=== PATIENT | male | born 1995 | race Caucasian/White ===

== ENCOUNTER 2016-12-22 19:56 | Emergency (ER) | payer MEDICAID ==
--- NOTE | 2016-12-22 20:18 | ED Physician Chart ---
Chief Complaint/HPI - Patient Information Date Seen:: 12/22/16 Time Seen:: 20:00 Chief Complaint:: foot pain History of Present Illness:: 21-year-old male, brought in by ambulance, complains of acute, constant, moderate, left foot pain that happened about 20 minutes prior to arrival to the airway stepped on a piece of glass. Has associated bleeding from the wound site. Also reports that yesterday he slipped out of his bathtub and hit his head and now has associated head pain and nausea. Historian:: Patient, EMS Review:: Nurse's Note Reviewed, EMS run form Reviewed Review of Systems - Review of Systems Other: Complete system review otherwise unremarkable except as noted in HPI. Past Medical History - Past Medical History Past Medical History: No significant medical hx Family History: None Social History: Smoker, No Alcohol, No Drug Use Surgical History: None Psychiatricy History: None Medication: None Family Medical History - Family Member Mother History Unknown: Yes Ethnicity: Non- Physical Exam - Physical Examination Other:: INITIAL VITAL SIGNS: Reviewed by me GENERAL: Alert and interactive. No acute distress HEAD: Head is normocephalic and atraumatic EYES: EOMI. . No scleral icterus. No conjunctival injection ENT: Moist mucous membranes. NECK: Supple. No masses. Full range of motion RESPIRATORY: No tachypnea. Clear breath sounds bilaterally. No wheezing, rales, or rhonchi CV: Regular rate and rhythm. No murmurs, rubs, or gallops ABDOMEN: Soft, non-distended, non-tender. No guarding. No rebound. No masses. EXTREMITIES: Left foot, lateral edge of pedal surface has a 1 cm V-shaped laceration. No active bleeding. SKIN: Warm and dry. No obvious rashes. NEUROLOGIC: Alert and oriented. Face is symmetric. Speech is normal. Moves all extremities equally. Motor and sensory distally intact. Labs/Radiology/EKG Results - Radiology Results Results: X-ray left foot 2 views was interpreted independently and contemporaneously by Raul Butterfield MD: No acute fractures No acute dislocations No soft tissue foreign bodies Overall impression: Normal X-ray Head CT without contrast per radiology NAD Assessment - Assessment General Assessment: SMOKING CESSATION COUNSELING: I spent greater than 3 minutes at the bedside with the patient discussing the benefits of smoking cessation, including decreased risk of heart disease, lung cancer, and emphysema. We also discussed strategies for smoking cessation, including pharmaceutical options. The patient was also encouraged to follow up with the primary care physician for outpatient follow-up. - Procedures Procedures:: Laceration Repair with dermabond by me: Anesthesia: None Location: Left foot Tendon/Joint/Nerves: No injury Foreign body: None detected after copious irrigation and exploration Technique: Tissue adhesive Complexity: No subcutaneous sutures/mucosal repair/edge excision Post Closure Length: 1 cm Patient's bleeding was easily controlled in the department and there is no indication of anemia. No evidence of compartment syndrome, neurologic injury, vascular injury, open joint, tendon laceration, or foreign body. Patient is appropriate for outpatient follow up. 48 hour wound check. Scar minimization instructions given. ED Septic Shock - . Is Septic Shock (SBP<90, OR Lactate>4 mmol\L) present?: No Reassessment (Disposition) - Reassessment Reassessment:: The patient's blood pressure was elevated (>120/80) but appears stable without evidence of hypertensive emergency or urgency. The patient was counseled about the risks hypertension urged to pursue outpatient monitoring and therapy within a week with her primary care physician. Patient had laceration of the left foot. Repaired with Dermabond. Also apparently had a head injury yesterday. Has no signs of trauma to the head. CT was unremarkable. Received intramuscular Toradol. Compazine. And oral Zofran. Tetanus given. Symptoms improved. Follow-up PCP within one to 2 days. Gave return to ER precautions. Patient understands and agrees the plan. Reassessment Condition:: Improved - Diagnosis Diagnosis:: Left foot laceration Closed head injury Elevated blood pressure without the diagnosis of hypertension - Aftercare/Follow up Instructions Aftercare/Follow-Up Instructions:: Counseled pt regarding lab results/diagnosis & need follow up, Refer to Discharge Instructions - Patient Disposition Discharge/Transfer:: Home Time:: 21:12 Condition at Disposition:: Improved ED Discharge Plan - Patient Disposition Admit/Discharge/Transfer: PT DISCHARGED HOME Condition at Disposition: Improved Instructions: Tissue Adhesive Wound Care, Head Injury, Adult
[2016-12-22] MEDS ORDERED: Prochlorperazine 5 mg/mL 2mL Vial IM STA (20:39)
[2016-12-22] MEDS ORDERED: Prochlorperazine 5 mg/mL 2mL Vial ONE (21:46)
[2016-12-22 22:16] LABS: URINE BILIRUBIN NEGATIVE (NEGATIVE); URINE BLOOD TRACE (NEGATIVE); URINE COLOR YELLOW; URINE GLUCOSE (UA) NEGATIVE (NEGATIVE); URINE KETONE NEGATIVE (NEGATIVE); URINE PH 6.5; URINE PROTEIN NEGATIVE (NEGATIVE); URINE UROBILINOGEN 0.2 E.U./dL (0.2 - 1.0)
[2016-12-22 22:17] LABS: URINE BACTERIA NONE SEEN /hpf (NONE SEEN); URINE EPITHELIAL CELLS RARE /lpf (FEW); URINE RBC 0-2 /hpf (0-5); URINE WBC NONE SEEN /hpf (0-5)
[2016-12-22 22:18] LABS: AMPHETAMINE URINE NEGATIVE (NEGATIVE); BARBITURATES URINE NEGATIVE (NEGATIVE)
--- NOTE | 2016-12-23 09:37 | Diagnostic Imaging Report ---
Left foot (2 views) HISTORY: Pain, trauma No acute bony abnormalities. No fractures. A radiodensity is noted in the soft tissues adjacent to the dorsal lateral aspect of the talus. Findings may be associated with a foreign body. Clinical correlation is needed. IMPRESSION: 1. No acute bony abnormalities 2. Radiodensity projecting over the soft tissues adjacent to the anterior lateral aspect of the talocalcaneal joint. Foreign body cannot be excluded. Clinical correlation is needed.
--- NOTE | 2016-12-24 11:56 | Diagnostic Imaging Report ---
CT scan of the brain without intravenous contrast HISTORY: Headache, trauma Total DLP equals 610 CTDI equals 32.8 Axial sections were obtained from the base of the skull to the vertex. There is a normal ventricular system size. No acute parenchymal abnormalities. No intracerebral hemorrhage. No mass effect or shift of midline structures. There is a prominent cisterna magna. No other extra-axial masses or abnormal fluid collections. IMPRESSION: No acute abnormalities
== END 2016-12-22 22:23 | disposition home or self-care (01) ==
LOC: ER 19:56
DX: S91.312A Laceration without foreign body, left foot, initial encounter (principal); R03.0 Elevated blood-pressure reading, without diagnosis of hypertension; F17.200 Nicotine dependence, unspecified, uncomplicated; X58.XXXA Exposure to other specified factors, initial encounter; Y93.89 Activity, other specified; Y92.89 Other specified places as the place of occurrence of the external cause; Y99.8 Other external cause status
CPT/HCPCS: 99285; 96372 ×2; 12001; 99406; 73620; 70450; 80300; 81001; 90715; J1885; J0780

== ENCOUNTER 2017-03-23 03:27 | Emergency (ER) | payer MEDICAID ==
[2017-03-23] MEDS ORDERED: Sodium Chloride 0.9% 1,000 ML IV ONE (03:54)
--- NOTE | 2017-03-23 04:12 | ED Physician Chart ---
Chief Complaint/HPI - Patient Information Date Seen:: 03/23/17 Time Seen:: 03:45 Chief Complaint:: abdominal pain History of Present Illness:: this is a 21 yr old male with lower abdominal pain who states that he has had this pain since yesterday. he states that he was seen at [facility] and sent home. he states that on the way home he fell and hit his head and arms to night. he is now concerned with his abdominal pain. he left [facility] but would not sign. he states that had his appendix removed. he denies using drugs. Allergies:: Allergies Allergy/AdvReac Type Severity Reaction Status Date / Time No Known Allergies Allergy Verified 12/22/16 21:42 Vitals:: Vital Signs - 8 hr 03/23/17 03:40 Temp 97.8 F HR 82 RR 19 BP 120/65 O2 Sat % 100 Historian:: Patient Review:: Nurse's Note Reviewed Review of Systems - Review of Systems General/Constitutional: No fever, No chills, No weight loss, No weakness, No diaphoresis, No edema, No loss of appetite Skin: No skin lesions, No rash, No bruising Head: No headache, No light-headedness Eyes: No loss of vision, No pain, No diplopia ENT: No earache, No nasal drainage, No sore throat, No tinnitus Neck: No neck pain, No swelling, No thyromegaly, No stiffness, No mass noted Cardio Vascular: No chest pain, No palpitations, No PND, No orthopnea, No edema Pulmonary: No SOB, No cough, No sputum, No wheezing GI: Nausea, Vomiting, No diarrhea, Pain, No melena, No hematochezia, No constipation, No hematemesis G/U: No dysuria, No frequency, No hematuria Musculoskeletal: No bone or joint pain, No back pain, No muscle pain, Other ( abrasions of both forearms and the forehead.) Endocrine: No polyuria, No polydipsia Psychiatric: No prior psych history, No depression, No anxiety, No suicidal ideation Hematopoietic: No bruising, No lymphadenopathy Allergic/Immuno: No urticaria, No angioedema Neurological: No syncope, No focal symptoms, No weakness, No paresthesia, No headache, No seizure, No dizziness, No confusion, No vertigo Past Medical History - Past Medical History Obtainable: Yes Past Medical History: No significant medical hx Family History: None Social History: Smoker, No Alcohol, No Drug Use Surgical History: Appendectomy Psychiatricy History: None Medication: Reviewed Family Medical History - Family Member Mother History Unknown: Yes Ethnicity: Non- Physical Exam - Physical Examination General/Constitutional: Awake, Well-developed, well-nourished, Alert, No distress, GCS 15, Non-toxic appearing, Ambulatory Head: Atraumatic Eyes: Lids, conjuctiva normal, PERRL, EOMI Skin: Nl inspection, No rash, No skin lesions, No ecchymosis, Well hydrated, No lymphadenopathy ENMT: External ears, nose nl, Nasal exam nl, Lips, teeth, gums nl Neck: Nontender, Full ROM w/o pain, No JVD, No nuchal rigidity, No bruit, No mass, No stridor Respiratory: Nl effort/Exclusion, Clear to Auscultation, No Wheeze/Rhonchi/Rales Cardio Vascular: RRR, No murmur, gallop, rubs, NL S1 S2 GI: No organomegaly, No hernia, Normal BS's, Nondistended, No mass/bruits, No McBurney tenderness Other GI comments:: generalized tenderness : No CVA tenderness Extremities: No tenderness or effusion, Full ROM, normal strength in all extremities, No edema Other Extremities comments:: bilateral abrasions of both forearms. Neuro/Psych: Alert/oriented, DTR's symmetric, Normal sensory exam, Normal motor strength, Judgement/insight normal, Mood normal, Normal gait, No focal deficits Misc: normal gait, Normal back, No paraspinal tenderness Labs/Radiology/EKG Results - Lab Results Results: Laboratory Results - last 24 hr 03/23/17 03/23/17 03/23/17 04:03 04:03 04:03 WBC 10.4 RBC 5.13 Hgb 15.9 Hct 46.6 MCV 90.9 MCH 30.9 H MCHC Differential 34.0 RDW 11.8 Plt Count 291 MPV 6.5 Neutrophils % 82.3 H Lymphocytes % 12.9 L Monocytes % 4.4 Eosinophils % 0.2 Basophils % 0.2 PT 9.9 INR 0.95 PTT (Actin FS) 25.4 L Sodium Potassium Chloride Carbon Dioxide Anion Gap BUN Creatinine Est GFR ( Amer) Est GFR (Non-Af Amer) BUN/Creatinine Ratio Glucose Calcium Total Bilirubin AST ALT Alkaline Phosphatase Troponin I Total Protein Albumin Globulin Albumin/Globulin Ratio Triglycerides 84 Cholesterol 168 LDL Cholesterol Direct 90 HDL Cholesterol 69 TSH Ethyl Alcohol 03/23/17 03/23/17 03/23/17 04:03 04:03 04:03 WBC RBC Hgb Hct MCV MCH MCHC Differential RDW Plt Count MPV Neutrophils % Lymphocytes % Monocytes % Eosinophils % Basophils % PT INR PTT (Actin FS) Sodium 139 Potassium 3.9 Chloride 106 Carbon Dioxide 25.7 Anion Gap 11.2 BUN 18 Creatinine 1.1 Est GFR ( Amer) > 60.0 Est GFR (Non-Af Amer) > 60.0 BUN/Creatinine Ratio 16.4 Glucose 81 Calcium 10.3 Total Bilirubin 1.2 H AST 18 ALT 13 Alkaline Phosphatase 53 Troponin I < 0.01 L Total Protein 7.2 Albumin 5.1 Globulin 2.1 Albumin/Globulin Ratio 2.4 H Triglycerides Cholesterol LDL Cholesterol Direct HDL Cholesterol TSH 1.17 Ethyl Alcohol 03/23/17 04:03 WBC RBC Hgb Hct MCV MCH MCHC Differential RDW Plt Count MPV Neutrophils % Lymphocytes % Monocytes % Eosinophils % Basophils % PT INR PTT (Actin FS) Sodium Potassium Chloride Carbon Dioxide Anion Gap BUN Creatinine Est GFR ( Amer) Est GFR (Non-Af Amer) BUN/Creatinine Ratio Glucose Calcium Total Bilirubin AST ALT Alkaline Phosphatase Troponin I Total Protein Albumin Globulin Albumin/Globulin Ratio Triglycerides Cholesterol LDL Cholesterol Direct HDL Cholesterol TSH Ethyl Alcohol < 10 ED Septic Shock - . Is Septic Shock (SBP<90, OR Lactate>4 mmol\L) present?: No - <6hrs of presentation: Vital Signs: Vital Signs - 8 hr 03/23/17 03:40 Temp 97.8 F HR 82 RR 19 BP 120/65 O2 Sat % 100 Reassessment (Disposition) - Reassessment Reassessment Condition:: Improved - Diagnosis Diagnosis:: gastroenteritis multiple small abrasions the forearms and forehead - Aftercare/Follow up Instructions Aftercare/Follow-Up Instructions:: Counseled pt regarding lab results/diagnosis & need follow up, Refer to Discharge Instructions, Counseled pt & family regarding lab results/diagnosis & need follow up - Patient Disposition Discharge/Transfer:: Home Condition at Disposition:: Improved ED Discharge Plan - Patient Disposition Admit/Discharge/Transfer: PT DISCHARGED HOME Condition at Disposition: Improved Additional Instructions: clear liquids for 12 hrs then try soft food and no dairy for now. stop smoking and see your doctor with a copy of your labs.
[2017-03-23 04:14] LABS: % BASOPHILS 0.2 % (0.0-2.0); % EOSINOPHILS 0.2 % (0.0-5.0); % LYMPHOCYTES 12.9 % (20.0-50.0); % MONOCYTES 4.4 % (2.0-10.0); % NEUTROPHILS 82.3 % (40.0-80.0); HEMATOCRIT 46.6 % (39.0-49.0); HEMOGLOBIN 15.9 gm/dL (13.2-17.3); MEAN CELL VOLUME 90.9 fl (80-99); MEAN CORPUSCULAR HEMOGLOBIN 30.9 pg (26.0-30.0); MEAN PLATELET VOLUME 6.5 fl; NEUTROPHILE ABSOLUTE 8.6 Th/cmm (1.8-8.0); PLATELET COUNT 291 Th/cmm (150-400); RED BLOOD COUNT 5.13 Mil/cmm (4.30-5.70); RED CELL DISTRIBUTION WIDTH 11.8 % (11.5-20.0); WHITE BLOOD COUNT 10.4 Th/cmm (4.8-10.8)
[2017-03-23 04:25] LABS: INR 0.95 (0.5-1.4); PROTHROMBIN TIME (TEST) 9.9 SECONDS (9.5-11.5)
[2017-03-23 04:48] LABS: ALB/GLOB RATIO 2.4 (1.0-1.8); ALKALINE PHOSPHATASE 53 U/L (34-104); ANION GAP 11.2 (7.0-16.0); BILIRUBIN,TOTAL 1.2 mg/dL (0.3-1.0); BUN - UREA NITROGEN 18 mg/dL (7-25); BUN/CREATININE RATIO 16.4; CALCIUM SERUM 10.3 mg/dL (8.6-10.3); CARBON DIOXIDE 25.7 mEq/L (21.0-31.0); CHLORIDE 106 mEq/L (98-107); CHOLESTEROL 168 mg/dL (<200); CREATININE - SERUM 1.1 mg/dL (0.7-1.3); GLUCOSE 81 mg/dL (70-105); POTASSIUM SERUM 3.9 mEq/L (3.5-5.1); SGOT 18 U/L (13-39); SGPT/ALT 13 U/L (7-52); SODIUM SERUM 139 mEq/L (136-145); TRIGLYCERIDES 84 mg/dL (<150)
[2017-03-23 07:47] LABS: URINE BILIRUBIN SMALL (NEGATIVE); URINE BLOOD NEGATIVE (NEGATIVE); URINE COLOR YELLOW; URINE GLUCOSE (UA) NEGATIVE (NEGATIVE); URINE KETONE 15 mg/dL (NEGATIVE); URINE PROTEIN NEGATIVE (NEGATIVE); URINE UROBILINOGEN 0.2 E.U./dL (0.2 - 1.0)
[2017-03-23 08:02] LABS: AMPHETAMINE URINE NEGATIVE (NEGATIVE); BARBITURATES URINE NEGATIVE (NEGATIVE)
[2017-03-23 08:03] LABS: METHADONE URINE NEGATIVE (NEGATIVE)
[2017-03-23 08:06] LABS: URINE BACTERIA OCCASIONAL /hpf (NONE SEEN); URINE EPITHELIAL CELLS FEW /lpf (FEW); URINE RBC 0-1 /hpf (0-5)
== END 2017-03-23 08:15 | disposition left against medical advice (07) ==
LOC: ER 03:27
DX: S00.81XA Abrasion of other part of head, initial encounter (principal); S50.812A Abrasion of left forearm, initial encounter; S50.811A Abrasion of right forearm, initial encounter; K52.9 Noninfective gastroenteritis and colitis, unspecified; F17.200 Nicotine dependence, unspecified, uncomplicated; Z90.49 Acquired absence of other specified parts of digestive tract; W19.XXXA Unspecified fall, initial encounter; Y93.89 Activity, other specified; Y92.89 Other specified places as the place of occurrence of the external cause; Y99.8 Other external cause status
CPT/HCPCS: 36415-UA; 80053-TC; 80061-TC; 80307; 80320-TC; 81001-TC; 84443-TC; 84484-TC; 85025-TC; 85610-TC; 85730-TC; 86592-TC; 96374; 96375; J1885; J2405; J7030